=== PATIENT | female | born 1965 | race Caucasian/White ===

== ENCOUNTER → 2016-03-22 | Outpatient (CLI) | payer OTHER ==
[~2016-03-22] MED LIST: CALC500C70 PO; CRAN1CAP15 PO; CYAN500T PO; MULTTAB58 PO; PRLSR20 PO
[2016-03-22 09:52] LABS: ESTIMATED AVERAGE GLUCOSE 140 mg/dl; HA1C FLAG Normal (Normal)
== END | disposition home or self-care (01) ==
LOC: C.LAB1850 07:54
PROVIDERS: ATTEND Family Medicine
DX: R73.03 Prediabetes (principal)

== ENCOUNTER → 2016-06-07 | Outpatient (CLI) | payer OTHER ==
--- NOTE | 2016-06-07 08:54 | DIAGNOSTIC IMAGING REPORT ---
LEFT KNEE 3 VIEWS CLINICAL HISTORY: LEFT KNEE PAIN 719.46, N25.562 pain COMPARISON: None. DISCUSSION: The bones and joint spaces appear intact. There is no evidence of fracture, dislocation or bony disease. There is no evidence for soft tissue swelling. IMPRESSION: Negative study. Electronically signed by: Bart Atkins M.D. 06/07/2016 8:51 AM Dictated Date/Time: 06/07/2016 8:51 AM
== END | disposition home or self-care (01) ==
LOC: C.RAD 08:16
PROVIDERS: ATTEND Physician Assistant
DX: M25.562 Pain in left knee (principal)

== ENCOUNTER → 2016-07-02 | Outpatient (CLI) | payer OTHER ==
--- NOTE | 2016-07-02 16:04 | MAMMOGRAPHY REPORT ---
BILATERAL DIGITAL SCREENING MAMMOGRAM TOMOSYNTHESIS WITH CAD: 07/02/2016 CLINICAL HISTORY: Routine screening. Patient has no complaints. TECHNIQUE: Breast tomosynthesis in addition to standard 2D mammography was performed. Current study was also evaluated with a Computer Aided Detection (CAD) system. COMPARISON: Comparison is made to exams dated: 12/04/2013 mammogram - [facility] an d 03/21/2015 mammogram - [facility]. BREAST COMPOSITION: There are scattered areas of fibroglandular density in both breasts. FINDINGS: There are stable intramammary lymph nodes in the lateral posterior right breast. A few sc attered benign-appearing macro calcifications, and stable focal asymmetry in the upper outer middle one third of the right breast. No new suspicious mass, architectural distortion or cluster of micro calcifications is seen. IMPRESSION: ACR BI-RADS CATEGORY 1: NEGATIVE There is no mammographic evidence of malignancy. A 1 year screening mammogram is recommended. The p atient will receive written notification of the results. Approximately 10% of breast cancers are not detected with mammography. A negative mammographic repor t should not delay biopsy if a clinically suggestive mass is present. Susana Mata M.D. ay/:07/02/2016 13:48:38 Toll Line Repairer: Tracy GRANT(Tatiana)(Suresh), [facility] letter sent: Normal 1/2 BI-RADS Code: ACR BI-RADS Category 1: Negative
== END | disposition home or self-care (01) ==
LOC: C.MAMM 11:31
PROVIDERS: ATTEND Family Medicine
DX: Z12.31 Encounter for screening mammogram for malignant neoplasm of breast (principal)

== ENCOUNTER → 2016-08-14 | Outpatient (CLI) | payer OTHER ==
[2016-08-14 14:38] LABS: RATIO 9.7 mcg/mg (0-30.0)
== END | disposition home or self-care (01) ==
LOC: C.LABMFLN 12:12
PROVIDERS: ATTEND Physician Assistant
DX: E11.9 Type 2 diabetes mellitus without complications (principal); R30.0 Dysuria

== ENCOUNTER → 2016-09-20 | Outpatient (CLI) | payer OTHER ==
[2016-09-20 09:36] LABS: BASO % 0.5 %; BASO ABS # 0.03 K/uL (0-0.2); COMPLETE YES; IG% 0.4 %; LYMPH % 24.6 %; LYMPH ABS # 1.36 K/uL (1.2-3.4); MEAN CELL VOLUME 84.1 fL (80-100); MEAN CORPUSCULAR HEMOGLOBIN 27.8 pg (25-34); MEAN CORPUSCULAR HGB CONC 33.1 g/dl (32-36); MEAN PLATELET VOLUME 10.4 fL (7.4-10.4); MONO % 9.2 %; NEUT % 63.3 %; PLATELET COUNT 283 K/uL (130-400); RED BLOOD COUNT 4.64 M/uL (4.2-5.4); WHITE BLOOD COUNT 5.52 K/uL (4.8-10.8)
[2016-09-20 10:12] LABS: ALT/SGPT 22 U/L (12-78); AST/SGOT 17 U/L (15-37); BLOOD UREA NITROGEN 8 mg/dl (7-18); BUN/CREATININE RATIO 11.3 (10-20); CALCIUM 8.9 mg/dl (8.5-10.1); CARBON DIOXIDE 29 mmol/L (21-32); CHLORIDE 105 mmol/L (98-107); CREATININE 0.68 mg/dl (0.60-1.20); GLUCOSE 113 mg/dl (70-99); POTASSIUM 3.9 mmol/L (3.5-5.1); SODIUM 139 mmol/L (136-145)
[2016-09-20 10:20] LABS: ALB/GLOB RATIO 0.9 (0.9-2); ALKALINE PHOSPHATASE 102 U/L (45-117); CHOLESTEROL 142 mg/dl (0-200); CHOLESTEROL/HDL RATIO 2.4; HDL CHOLESTEROL 58 mg/dl; LDL CHOLESTEROL CALCULATED 68 mg/dl; TOTAL IRON BINDING CAPACITY 381 mcg/dl (250-450); TRIGLYCERIDES 82 mg/dl (0-150); VERY LOW DENSITY LIPOPROT CALC 16 mg/dl
[2016-09-20 11:01] LABS: ESTIMATED AVERAGE GLUCOSE 134 mg/dl; HA1C FLAG Normal (Normal)
== END | disposition home or self-care (01) ==
LOC: C.LAB1850 07:48
PROVIDERS: ATTEND Family Medicine
DX: E56.9 Vitamin deficiency, unspecified (principal); Z98.84 Bariatric surgery status; R73.03 Prediabetes

== ENCOUNTER → 2017-03-10 | Outpatient (CLI) | payer OTHER | END | disposition home or self-care (01) | LOC: C.LABPBG 11:08 | PROVIDERS: ATTEND Physician Assistant | DX: A69.20 Lyme disease, unspecified (principal) ==

== ENCOUNTER → 2017-04-18 | Outpatient (CLI) | payer OTHER ==
[2017-04-18 09:46] LABS: ALBUMIN 3.4 gm/dl (3.4-5.0); ALT/SGPT 22 U/L (12-78); AST/SGOT 18 U/L (15-37); BLOOD UREA NITROGEN 12 mg/dl (7-18); CALCIUM 8.8 mg/dl (8.5-10.1); CARBON DIOXIDE 29 mmol/L (21-32); CREATININE 0.73 mg/dl (0.60-1.20); GLUCOSE 126 mg/dl (70-99); SODIUM 137 mmol/L (136-145)
[2017-04-18 09:49] LABS: ALKALINE PHOSPHATASE 89 U/L (45-117); CHOLESTEROL 164 mg/dl (0-200); LDL CHOLESTEROL CALCULATED 85 mg/dl; TOTAL PROTEIN 7.1 gm/dl (6.4-8.2)
[2017-04-18 09:51] LABS: HEMOGLOBIN A1C 6.5 % (4.5-5.6)
== END | disposition home or self-care (01) ==
LOC: C.LAB1850 07:55
PROVIDERS: ATTEND Family Medicine
DX: E78.5 Hyperlipidemia, unspecified (principal); E11.9 Type 2 diabetes mellitus without complications; Z98.84 Bariatric surgery status

== ENCOUNTER 2022-12-10 03:40 | Observation (INO) ==
[2022-12-10] MEDS ORDERED: ONDANSETRON INJ 2 MG/ML 2 ML VIAL IV STA (04:00)
[2022-12-10] MEDS ORDERED: ACETAMINOPHEN 1,000 MG/100 ML VIAL IV STA (04:00)
[2022-12-10] MEDS ORDERED: SODIUM CHLORIDE 0.9% 1,000 ML IV STA (04:00)
[2022-12-10] MEDS ORDERED: FAMOTIDINE 20MG IV PUSH 20 MG/5 ML SYR IV STA (04:01)
--- NOTE | 2022-12-10 04:19 | Emergency Department Note ---
History of Present Illness General Chief complaint: Abdominal Pain Stated complaint: ABDOMINAL PAIN PAST 5 HOURS,VOMITING Time Seen by Provider: 12/10/22 03:52 History of Present Illness Maximum Pain Intensity: 7 This 57-year-old female that is already had a cholecystectomy and gastric bypass presents to the ER complaining of nausea vomiting and lower abdominal pain. Patient denies chest pain, dyspnea, fevers, diarrhea, urinary symptoms. No other concerns per patient. Patient is on Ozempic. Home Medications Medication Instructions Recorded Confirmed Type acetaminophen 300 mg-codeine 30 mg 1 tab PO DIRECTED PRN Pain 01/04/21 01/04/21 History tablet calcium carbonate 600 mg-vitamin 1 tab PO DAILY 01/04/21 01/04/21 History D3 10 mcg (400 unit) tablet (Calcium 600 + D(3)) escitalopram oxalate 20 mg tablet 20 mg PO DAILY 01/04/21 01/04/21 History famotidine 20 mg tablet 20 mg PO DAILY 01/04/21 01/04/21 History lisinopril 2.5 mg tablet 2.5 mg PO DAILY 01/04/21 01/04/21 History metformin 1,000 mg tablet 1,000 mg PO BID 01/04/21 01/04/21 History multivitamin 1 tab PO DAILY 01/04/21 01/04/21 History Allergies Allergy/AdvReac Type Severity Reaction Status Date / Time No Known Allergies Allergy Verified 01/04/21 01:39 Past Med/Surg History Social History Smoking Status: Never smoker Feels Safe at Home: Yes Review of Systems A total of 10 systems reviewed and were otherwise negative Physical Exam Vital Signs Vital Signs - 24 hr 12/10/22 03:44 12/10/22 06:01 12/10/22 05:56 Temperature 36.4 C L Temperature Source Temporal Artery Scan Pulse Rate 80 70 Pulse Rate [Apical] 66 Pulse Rate from SpO2 Sensor 71 Pulse Rhythm Regular Pulse Rhythm [Apical] Regular Pulse Strength Normal Pulse Strength [Apical] Normal Respiratory Rate 20 16 16 Respiratory Effort / Characteristics Non-Labored Spontaneous Non-Labored Spontaneous Respiratory Depth Normal Normal Respiratory Pattern Regular Blood Pressure 109/75 114/71 Blood Pressure [Left Arm] 122/70 Blood Pressure Mean 86 85 Blood Pressure Mean [Left Arm] 87 Blood Pressure Position Sitting Blood Pressure Position [Left Arm] Lying Pulse Oximetry 99 95 94 Oxygen Delivery Method Room Air Room Air Sepsis Recent Fever Within 48 Hours No Sepsis New/Unexplained Change in Mental Status N/A Sepsis Action Taken by Nursing No Action Required VITALS: Vitals are noted on the nurse's note and reviewed by myself. Vital signs stable. GENERAL: Pleasant patient, in no acute distress, nondiaphoretic, well-developed well-nourished. SKIN: The skin was without rashes, erythema, edema, or bruising. There is no tenting of the skin. Capillary reflex less than 2 seconds. HEAD: Normocephalic atraumatic. EARS: External auditory canals clear, EYES: Pupils equal round and reactive to light and accommodation. Conjunctivae without injection, sclerae without icterus. Extraocular movements intact. NOSE: Patent, turbinates without inflammation or discharge MOUTH: Mucous membranes moist. Pharynx without erythema or exudate. Uvula midline. Airway patent. Tongue does not deviate. NECK: Supple without nuchal rigidity. No lymphadenopathy. No thyromegaly. Cervical spine is nontender. No JVD. HEART: Regular rate and rhythm LUNGS: Clear to auscultation bilaterally without wheezes, rales or rhonchi. No retractions or accessory muscle use. ABDOMEN: Positive bowel sounds x 4. Normal tympanic percussion. Soft, tender to palpation lower abdomen, without masses or organomegaly. Grove sign negative. No guarding or rebound tenderness. No CVA tenderness MUSCULOSKELETAL: No muscle atrophy, erythema, or edema noted. NEURO: Patient was alert and oriented to person place and time. Normal sensation to light and sharp touch. No focal neurological deficits. Course Administered Medications Discontinued Medications Sodium Chloride (Nss) 1,000 mls @ 999 mls/hr IV .Q1H1M STA Stop: 12/10/22 05:00 Last Infusion: 12/10/22 05:14 Dose: 0 mls/hr Documented By: Admin: 12/10/22 04:07 Dose: 999 mls/hr Documented By: TATUM Acetaminophen (Ofirmev) 1,000 mg in 100 mls @ 400 mls/hr IV NOW STA Stop: 12/10/22 04:14 Last Infusion: 12/10/22 04:33 Dose: 0 mls/hr Documented By: Admin: 12/10/22 04:07 Dose: 400 mls/hr Documented By: TATUM Famotidine (Pepcid 20mg Iv Push) 20 mg in 5 mls @ 2.5 mls/min IV NOW STA Stop: 12/10/22 04:02 Last Admin: 12/10/22 04:07 Dose: 2.5 mls/min Documented By: TATUM Ioversol (Optiray 320 100ml) 100 ml IV ONCE ONE Stop: 12/10/22 05:00 Last Admin: 12/10/22 04:59 Dose: 90 ml Documented By: GURPREET Ondansetron HCl (Ondansetron Inj 2 Mg/Ml 2 Ml Vial) 4 mg IV NOW STA Stop: 12/10/22 04:01 Last Admin: 12/10/22 04:07 Dose: 4 mg Documented By: TATUM Medical Decision Making Medical Records Attestation: I reviewed the patient's medical records. Home Medications Current Medication List: was personally reviewed by me Laboratory Data Attestation: I reviewed the patient's lab results. 12/10/22 04:16 12/10/22 04:16 Lab Results 12/10/22 12/10/22 12/10/22 Range/Units 04:16 04:16 04:16 WBC 9.19 (4.8-10.8) K/ul RBC 4.77 (4.20-5.40) M/uL Hgb 14.0 (12.0-16.0) g/dl POC Hgb (12.0-16.0) g/dl Hct 41.0 (37.0-47.0) % POC Hct (37-47) % MCV 86.0 (80.0-100.0) fL MCH 29.4 (25.0-34.0) pg MCHC 34.1 (32.0-36.0) g/dL RDW Std Deviation 39.8 (36.4-46.3) fL RDW Coeff of Luca 12.6 (11.5-14.5) % Plt Count 293 (130-400) K/uL MPV 10.0 (9.4-12.4) fL Immature Gran % (Auto) 0.3 % Neut % (Auto) 82.0 % Lymph % (Auto) 11.2 % Alger % (Auto) 5.8 % Eos % (Auto) 0.3 % Baso % (Auto) 0.4 % Neut # (Auto) 7.53 H (1.40-6.50) K/uL Lymph # (Auto) 1.03 L (1.20-3.40) K/uL Alger # (Auto) 0.53 (0.11-0.59) K/uL Eos # (Auto) 0.03 (0.00-0.50) K/uL Baso # (Auto) 0.04 (0.00-0.20) K/uL Immature Gran # (Auto) 0.03 (0.01-0.20) K/uL POC Sodium (135-144) mmol/L Sodium 136 (136-145) mmol/L POC Potassium (3.3-5.0) mmol/L Potassium 4.1 (3.5-5.1) mmol/L POC Chloride (101-112) mmol/L Chloride 104 (98-107) mmol/L Carbon Dioxide 26 (21-32) mmol/L POC Total CO2 (24-31) mmol/L Anion Gap 6 (3-11) POC Anion Gap (16-25) mmol/L POC BUN (7-18) mg/dl BUN 10 (6-23) mg/dl Creatinine 0.73 (0.6-1.2) mg/dl POC Creatinine (0.6-1.3) mg/dl Est Cr Clr Drug Dosing 96.7 ml/min Est GFR ( Amer) 106.7 ml/min Est GFR (Non-Af Amer) 92.1 ml/min BUN/Creatinine Ratio 13.7 (10-20) Glucose 179 H (70-99(Fasting)) mg/dl POC Glucose (other) (70-99) mg/dl Calcium 9.3 (8.6-10.3) mg/dl POC Ioniz Calcium Yeyo (1.12-1.32) mmol/l Total Bilirubin 0.6 (0.2-1.0) mg/dl AST 21 (13-39) U/L ALT 18 (7-52) U/L Alkaline Phosphatase 117 H (34-104) U/L Total Protein 7.1 (6.0-8.3) gm/dl Albumin 4.1 (3.4-5.0) gm/dl Globulin 3.0 (2.5-4.0) gm/dl Albumin/Globulin Ratio 1.4 (0.9-2) Lipase 31 (11-82) U/L Urine Color Dark Yellow Urine Appearance Clear (Clear) Urine pH 5.5 (4.5-7.5) Ur Specific Haiku 1.036 H (1.000-1.030) Urine Protein Trace H (Negative) Urine Glucose (UA) Negative (Negative) Urine Ketones Trace H (Negative) Urine Blood Negative (Negative) Urine Nitrite Negative (Negative) Urine Bilirubin 1+ H (Negative) Urine Urobilinogen Negative (Negative) Ur Leukocyte Esterase Trace H (Negative) Urine WBC (Auto) 1-5 (0-5) /hpf Urine RBC (Auto) 0-4 (0-4) /hpf U Hyaline Cast (Auto) 1-5 (0-5) /lpf U Epithel Cells (Auto) 10-20 H (0-5) /lpf Urine Bacteria (Auto) Negative (Negative) 12/10/22 Range/Units 04:25 WBC (4.8-10.8) K/ul RBC (4.20-5.40) M/uL Hgb (12.0-16.0) g/dl POC Hgb 13.9 (12.0-16.0) g/dl Hct (37.0-47.0) % POC Hct 41 (37-47) % MCV (80.0-100.0) fL MCH (25.0-34.0) pg MCHC (32.0-36.0) g/dL RDW Std Deviation (36.4-46.3) fL RDW Coeff of Luca (11.5-14.5) % Plt Count (130-400) K/uL MPV (9.4-12.4) fL Immature Gran % (Auto) % Neut % (Auto) % Lymph % (Auto) % Alger % (Auto) % Eos % (Auto) % Baso % (Auto) % Neut # (Auto) (1.40-6.50) K/uL Lymph # (Auto) (1.20-3.40) K/uL Alger # (Auto) (0.11-0.59) K/uL Eos # (Auto) (0.00-0.50) K/uL Baso # (Auto) (0.00-0.20) K/uL Immature Gran # (Auto) (0.01-0.20) K/uL POC Sodium 138 (135-144) mmol/L Sodium (136-145) mmol/L POC Potassium 4.1 (3.3-5.0) mmol/L Potassium (3.5-5.1) mmol/L POC Chloride 101 (101-112) mmol/L Chloride (98-107) mmol/L Carbon Dioxide (21-32) mmol/L POC Total CO2 24 (24-31) mmol/L Anion Gap (3-11) POC Anion Gap 18.0 (16-25) mmol/L POC BUN 9 (7-18) mg/dl BUN (6-23) mg/dl Creatinine (0.6-1.2) mg/dl POC Creatinine 0.7 (0.6-1.3) mg/dl Est Cr Clr Drug Dosing ml/min Est GFR ( Amer) ml/min Est GFR (Non-Af Amer) ml/min BUN/Creatinine Ratio (10-20) Glucose (70-99(Fasting)) mg/dl POC Glucose (other) 177 H (70-99) mg/dl Calcium (8.6-10.3) mg/dl POC Ioniz Calcium Yeyo 1.17 (1.12-1.32) mmol/l Total Bilirubin (0.2-1.0) mg/dl AST (13-39) U/L ALT (7-52) U/L Alkaline Phosphatase (34-104) U/L Total Protein (6.0-8.3) gm/dl Albumin (3.4-5.0) gm/dl Globulin (2.5-4.0) gm/dl Albumin/Globulin Ratio (0.9-2) Lipase (11-82) U/L Urine Color Urine Appearance (Clear) Urine pH (4.5-7.5) Ur Specific Haiku (1.000-1.030) Urine Protein (Negative) Urine Glucose (UA) (Negative) Urine Ketones (Negative) Urine Blood (Negative) Urine Nitrite (Negative) Urine Bilirubin (Negative) Urine Urobilinogen (Negative) Ur Leukocyte Esterase (Negative) Urine WBC (Auto) (0-5) /hpf Urine RBC (Auto) (0-4) /hpf U Hyaline Cast (Auto) (0-5) /lpf U Epithel Cells (Auto) (0-5) /lpf Urine Bacteria (Auto) (Negative) Imaging Data Attestation: I personally reviewed and interpreted this imaging study as follows: Radiologist's Impression: Abdomen/Pelvis CT 12/10/22 04:00 CR Exam(s): CT ABDOMEN + PELVIS With Contrast IV Amt: 90 ML OPTIRAY 320 EXAM: CT Abdomen and Pelvis With Intravenous Contrast CLINICAL HISTORY: Reason for exam: rlq pain. TECHNIQUE: Axial computed tomography images of the abdomen and pelvis with intravenous contrast. Automated exposure control was utilized for the study. A dose lowering technique was utilized adhering to the principles of ALARA. CONTRAST: Patient received 90 ML OPTIRAY 320 of IV contrast COMPARISON: CT abdomen pelvis performed 04/16/2011 FINDINGS: Lung bases: Unremarkable. No mass. No consolidation. ABDOMEN: Liver: Unremarkable. No mass. Gallbladder and bile ducts: Cholecystectomy. No ductal dilation. Pancreas: Unremarkable. No mass. No ductal dilation. Spleen: Unremarkable. No splenomegaly. Adrenals: Unremarkable. No mass. Kidneys and ureters: Unremarkable. No solid mass. No hydronephrosis. Stomach and bowel: Sequela from prior bariatric surgery without evidence of obstruction. Approximately 3.8 cm hiatal hernia. PELVIS: Appendix: Appendix distended up to 1.1 cm with wall thickening and inflammatory change consistent with acute appendicitis. No adjacent fluid collection. Bladder: Unremarkable. No mass. Reproductive: Unremarkable as visualized. ABDOMEN and PELVIS: Intraperitoneal space: No free air. No significant fluid collection. Bones/joints: No acute fracture. No dislocation. Soft tissues: Unremarkable. Vasculature: Unremarkable. No abdominal aortic aneurysm. Lymph nodes: No enlarged lymph nodes. IMPRESSION: Findings consistent with acute nonperforated appendicitis. No adjacent fluid collection. Communications: Call Doctor Appendicitis Electronically signed by: Delano Laughlin M.D. 12/10/22 06:15 AM MDM Narrative Prior records/ancillary studies reviewed. Triage Nursing notes reviewed. Additional history obtained from family. The patient's history was concerning for abdominal pain. Differential diagnosis: Etiologies such as appendicitis, diverticulitis, PUD, biliary pathology, UTI, pancreatitis, obstruction, mesenteric ischemia, aortic pathology, infections, inflammatory bowel disease, renal colic, as well as others were entertained. Physical examination findings: As above. ER treatment provided: An order was placed for continuous cardiac monitoring. The monitor shows a rate of 60-100 with a sinus rhythm per my Independent interpretation. IV fluids, Zofran, Tylenol and Pepcid were ordered Zosyn was ordered for acute appendicitis N.p.o. On reassessment the patient felt better. Diagnostics interpreted by me: The labs Independently Interpreted by myself revealed no worrisome leukocytosis, mild hyperglycemia that DKA, negative urine Imaging studies: CT of the abdomen pelvis is concerning for acute appendicitis per my independent interpretation and per report as above Consultation: A consultation was placed with the Dr. Meyer. The case was discussed and diagnostics were reviewed. Surgery will come in and evaluate the patient. Exam and history seem consistent with acute appendicitis. Surgery was consulted and the case was discussed. Patient was started on antibiotics. Medicine was consulted and the case was discussed. She will be evaluated the surgical team for further evaluation and treatment. By the evaluation outlined above emergent etiologies such as diverticulitis, PUD, biliary pathology, UTI, pancreatitis, obstruction, mesenteric ischemia, aortic pathology, inflammatory bowel disease, renal colic, as well as others were deemed relatively unlikely. The pt informed about the findings as listed above. All questions were answered and pleased with the treatment. The chart was completed utilizing [employer] Speech voice recognition software. Grammatical errors, random word insertions, pronoun errors, and incomplete sentences are an occassional consequence of this system due to software limitations, ambient noise, and hardware issues. Any formal questions or concerns about the content, text, or information contained within the body of this dictation should be directly addressed to the physician assistant professor of religion for clarification. Impression & Plan Acute appendicitis Discharge Plan Visit Data Chief Complaint: Abdominal Pain Stated Complaint: ABDOMINAL PAIN PAST 5 HOURS,VOMITING ED Provider: Katiuska Trent ED Midlevel Provider: Cheryl Zelaya Discharge Problem: Acute appendicitis Patient Disposition: Being Evaluated by Surgeon Condition: Good Discharge Instructions Activity Restrictions/Additional Instructions: Forms Stand Alone Forms: Work/School Release (ED), Virtual Emergency Department, Important Visit Information Prescriptions Prescriptions: No Action multivitamin Tablet 1 tab PO DAILY acetaminophen-codeine 300-30 mg tablet 1 tab PO DIRECTED PRN (Reason: Pain) famotidine 20 mg tablet 20 mg PO DAILY metformin 1,000 mg tablet 1,000 mg PO BID lisinopril 2.5 mg tablet 2.5 mg PO DAILY escitalopram oxalate 20 mg tablet 20 mg PO DAILY calcium carbonate-vitamin D3 [Calcium 600 + D(3)] 600 mg(1,500mg) -400 unit Tablet 1 tab PO DAILY Referrals Referrals: Jeet Stevenson, [Primary Care Provider] -
[2022-12-10 04:28] LABS: Appearance Urine Clear (Clear); Bacteria Urine Automated Negative (Negative); Blood Urine Negative (Negative); Color Urine Dark Yellow; Glucose Urine UA Negative (Negative); Ketones Urine Trace (Negative); Leukocyte Esterase Urine Trace (Negative); Nitrite Urine Negative (Negative); Protein Urine Trace (Negative); RBC Urine Automated 0-4 /hpf (0-4); Specific Gravity Urine 1.036 (1.000-1.030); Urobilinogen Urine Negative (Negative); pH Urine 5.5 (4.5-7.5)
[2022-12-10 04:29] LABS: Bilirubin Urine 1+ (Negative)
[2022-12-10 04:32] LABS: Basophils # (auto) 0.04 K/uL (0.00-0.20); Basophils % (auto) 0.4 %; Eosinophils # (auto) 0.03 K/uL (0.00-0.50); Eosinophils % (auto) 0.3 %; Immature Granulocytes # (auto) 0.03 K/uL (0.01-0.20); Immature Granulocytes % (auto) 0.3 %; Lymphocytes # (auto) 1.03 K/uL (1.20-3.40); Lymphocytes % (auto) 11.2 %; Mean Corpuscular Hemoglobin 29.4 pg (25.0-34.0); Mean Corpuscular Hgb Conc 34.1 g/dL (32.0-36.0); Monocytes # (auto) 0.53 K/uL (0.11-0.59); Monocytes % (auto) 5.8 %; Neutrophils # (auto) 7.53 K/uL (1.40-6.50); Platelet Count 293 K/uL (130-400); RDW Coefficient of Variation 12.6 % (11.5-14.5); RDW Standard Deviation 39.8 fL (36.4-46.3); Red Blood Count 4.77 M/uL (4.20-5.40); White Blood Count 9.19 K/ul (4.8-10.8)
[2022-12-10 04:42] LABS: iSTAT Creatinine 0.7 mg/dl (0.6-1.3); iSTAT Hemoglobin 13.9 g/dl (12.0-16.0); iSTAT Ionized Calcium 1.17 mmol/l (1.12-1.32); iSTAT Potassium 4.1 mmol/L (3.3-5.0)
[2022-12-10 04:47] LABS: Albumin Globulin Ratio 1.4 (0.9-2); Albumin Level 4.1 gm/dl (3.4-5.0); BUN Creatinine Ratio 13.7 (10-20); Bilirubin,Total 0.6 mg/dl (0.2-1.0); Calcium 9.3 mg/dl (8.6-10.3); Creatinine Clr Calc Pharmacy 96.7 ml/min; Est GFR (African American) 106.7 ml/min; Est GFR (Non-African American) 92.1 ml/min; Potassium 4.1 mmol/L (3.5-5.1); Total Protein 7.1 gm/dl (6.0-8.3)
[2022-12-10] MEDS ORDERED: OPTIRAY 320 100ml IV ONE (04:59)
[2022-12-10] MEDS ORDERED: ONDANSETRON HOME PACK 4MG OD TAB PO ONE (05:44)
--- NOTE | 2022-12-10 06:16 | CT Scan Report ---
Exam(s): CT ABDOMEN + PELVIS With Contrast IV Amt: 90 ML OPTIRAY 320 EXAM: CT Abdomen and Pelvis With Intravenous Contrast CLINICAL HISTORY: Reason for exam: rlq pain. TECHNIQUE: Axial computed tomography images of the abdomen and pelvis with intravenous contrast. Automated exposure control was utilized for the study. A dose lowering technique was utilized adhering to the principles of ALARA. CONTRAST: Patient received 90 ML OPTIRAY 320 of IV contrast COMPARISON: CT abdomen pelvis performed 04/16/2011 FINDINGS: Lung bases: Unremarkable. No mass. No consolidation. ABDOMEN: Liver: Unremarkable. No mass. Gallbladder and bile ducts: Cholecystectomy. No ductal dilation. Pancreas: Unremarkable. No mass. No ductal dilation. Spleen: Unremarkable. No splenomegaly. Adrenals: Unremarkable. No mass. Kidneys and ureters: Unremarkable. No solid mass. No hydronephrosis. Stomach and bowel: Sequela from prior bariatric surgery without evidence of obstruction. Approximately 3.8 cm hiatal hernia. PELVIS: Appendix: Appendix distended up to 1.1 cm with wall thickening and inflammatory change consistent with acute appendicitis. No adjacent fluid collection. Bladder: Unremarkable. No mass. Reproductive: Unremarkable as visualized. ABDOMEN and PELVIS: Intraperitoneal space: No free air. No significant fluid collection. Bones/joints: No acute fracture. No dislocation. Soft tissues: Unremarkable. Vasculature: Unremarkable. No abdominal aortic aneurysm. Lymph nodes: No enlarged lymph nodes. IMPRESSION: Findings consistent with acute nonperforated appendicitis. No adjacent fluid collection. Communications: Call Doctor Appendicitis Electronically signed by: Delano Laughlin M.D. 12/10/22 06:15 AM
[2022-12-10] MEDS ORDERED: PIPERACILLIN/TAZOBACTAM 4.5 GM/100 ML BAG IV ONE (06:17)
[2022-12-10] MEDS ORDERED: MoRPHine SULFATE 4 MG/ML 1 ML CARP\\VIAL IV STA (07:52)
--- NOTE | 2022-12-10 09:11 | History & Physical Report ---
Date of Service December 10, 2022 Assessment & Plan (1) Acute appendicitis: Plan 57 year-old female with 12 hour history of lower abdominal pain with associated nausea and vomiting. CT scan with dilated appendix at 1.1 cm with no evidence of abscess or perforation. No leukocytosis, afebrile, hemodynamically stable. Exam with tenderness in the right lower quadrant. Plan: Discussed with patient imaging findings and examination findings consistent with acute appendicitis. Discussed laparoscopic appendectomy , risks, and expected recovery and restrictions. Will plan to proceed to operating room today for laparoscopic appendectomy at earliest convenience. Keep npo pain management as needed Dr. Guerra has seen and examined patient, see addendum for further recommendations/plan. History of Present Illness Chief Complaint: abdominal pain Primary Care Provider: Jeet Stevenson DO Dasia is a 57 year-old female with history of diabetes, hypertension, GERD with history of laparoscopic gastric bypass and laparoscopic cholecystectomy who presented to emergency room with complaint of mid lower abdominal pain that started last evening around 8 pm with chills, nausea, and vomiting, and low appetite. No changes in bowel habits. No difficulty urinating. Pain was burning at first but then became more sharp. Antacid did not improve pain. No history of blood clots or bleeding disorders. ER work-up included labs which showed no leukocytosis. CT scan of abdomen and pelvis with dilated appendix measuring 1.1 cm with no evidence of abscess/perforation. Pain was rating at 7/10 upon ER presentation and now 4/10 after pain medication. Allergies Allergy/AdvReac Type Severity Reaction Status Date / Time codeine AdvReac Mild makes her Unverified 12/10/22 08:13 sick to stomach Home Medications Medication Instructions Recorded Confirmed Type calcium carbonate 600 mg-vitamin 1 tab PO DAILY 01/04/21 12/10/22 History D3 10 mcg (400 unit) tablet (Calcium 600 + D(3)) escitalopram oxalate 20 mg tablet 10 mg PO DAILY 01/04/21 12/10/22 History famotidine 20 mg tablet 20 mg PO DAILY 01/04/21 12/10/22 History lisinopril 2.5 mg tablet 2.5 mg PO DAILY 01/04/21 12/10/22 History metformin 1,000 mg tablet 1,000 mg PO BID 01/04/21 12/10/22 History multivitamin 1 tab PO DAILY 01/04/21 12/10/22 History atorvastatin 10 mg tablet 10 mg PO DAILY 12/10/22 12/10/22 History pantoprazole 40 mg tablet,delayed 40 mg PO DAILY 12/10/22 12/10/22 History release semaglutide 1 mg/dose (4 mg/3 mL) 1 mg subcut WK 12/10/22 12/10/22 History subcutaneous pen injector (Ozempic) Past Med/Surg History Social History Smoking Status: Never smoker Feels Safe at Home: Yes Review of Systems Review of Systems: All systems reviewed & are unremarkable except as noted in HPI & below Physical Exam Constitutional: WD/WN, vitals as above + obese, cooperative and comfortable; no acute distress and not ill appearing Respiratory: normal respiratory effort, lungs clear to auscultation Cardiovascular: RRR, no murmur, no edema Gastrointestinal (Abdomen): Inspection/Auscultation: abdomen normal to inspe ction and + abdominal surgical scar (laparoscopic scars present); abdomen not distended Percussion/Palpation: + abdomen tender (Right lower quadrant) and abdomen soft; no guarding, abdomen not rigid and abdomen not firm Positve Rosvigs sign Skin: no rashes, warm and dry Psychiatric: A+Ox3, euthymic affect Results & Data Results & Data Vital Signs (Past 12 Hours) Vital Signs Temp Pulse Pulse Resp BP BP Pulse Ox 12/10/22 08:47 70 12/10/22 06:30 78 15 115/71 97 12/10/22 06:00 122/70 12/10/22 04:16 67 12/10/22 05:56 70 16 114/71 94 12/10/22 06:01 66 16 122/70 95 12/10/22 03:44 36.4 C L 80 20 109/75 99 O2 Del Method 12/10/22 08:47 12/10/22 06:30 12/10/22 06:00 12/10/22 04:16 12/10/22 05:56 12/10/22 06:01 Room Air 12/10/22 03:44 Room Air Laboratory Results 12/10/22 12/10/22 12/10/22 Range/Units 04:25 04:16 04:16 WBC (4.8-10.8) K/ul RBC (4.20-5.40) M/uL Hgb (12.0-16.0) g/dl POC Hgb 13.9 (12.0-16.0) g/dl Hct (37.0-47.0) % POC Hct 41 (37-47) % MCV (80.0-100.0) fL MCH (25.0-34.0) pg MCHC (32.0-36.0) g/dL RDW Std Deviation (36.4-46.3) fL RDW Coeff of Luca (11.5-14.5) % Plt Count (130-400) K/uL MPV (9.4-12.4) fL Immature Gran % (Auto) % Neut % (Auto) % Lymph % (Auto) % Swain % (Auto) % Eos % (Auto) % Baso % (Auto) % Neut # (Auto) (1.40-6.50) K/uL Lymph # (Auto) (1.20-3.40) K/uL Swain # (Auto) (0.11-0.59) K/uL Eos # (Auto) (0.00-0.50) K/uL Baso # (Auto) (0.00-0.20) K/uL Immature Gran # (Auto) (0.01-0.20) K/uL POC Sodium 138 (135-144) mmol/L Sodium 136 (136-145) mmol/L POC Potassium 4.1 (3.3-5.0) mmol/L Potassium 4.1 (3.5-5.1) mmol/L POC Chloride 101 (101-112) mmol/L Chloride 104 (98-107) mmol/L Carbon Dioxide 26 (21-32) mmol/L POC Total CO2 24 (24-31) mmol/L Anion Gap 6 (3-11) POC Anion Gap 18.0 (16-25) mmol/L POC BUN 9 (7-18) mg/dl BUN 10 (6-23) mg/dl Creatinine 0.73 (0.6-1.2) mg/dl POC Creatinine 0.7 (0.6-1.3) mg/dl Est Cr Clr Drug Dosing 96.7 ml/min Est GFR ( Amer) 106.7 ml/min Est GFR (Non-Af Amer) 92.1 ml/min BUN/Creatinine Ratio 13.7 (10-20) Glucose 179 H (70-99(Fasting)) mg/dl POC Glucose (other) 177 H (70-99) mg/dl Calcium 9.3 (8.6-10.3) mg/dl POC Ioniz Calcium Yeyo 1.17 (1.12-1.32) mmol/l Total Bilirubin 0.6 (0.2-1.0) mg/dl AST 21 (13-39) U/L ALT 18 (7-52) U/L Alkaline Phosphatase 117 H (34-104) U/L Total Protein 7.1 (6.0-8.3) gm/dl Albumin 4.1 (3.4-5.0) gm/dl Globulin 3.0 (2.5-4.0) gm/dl Albumin/Globulin Ratio 1.4 (0.9-2) Lipase 31 (11-82) U/L Urine Color Dark Yellow Urine Appearance Clear (Clear) Urine pH 5.5 (4.5-7.5) Ur Specific [place] 1.036 H (1.000-1.030) Urine Protein Trace H (Negative) Urine Glucose (UA) Negative (Negative) Urine Ketones Trace H (Negative) Urine Blood Negative (Negative) Urine Nitrite Negative (Negative) Urine Bilirubin 1+ H (Negative) Urine Urobilinogen Negative (Negative) Ur Leukocyte Esterase Trace H (Negative) Urine WBC (Auto) 1-5 (0-5) /hpf Urine RBC (Auto) 0-4 (0-4) /hpf U Hyaline Cast (Auto) 1-5 (0-5) /lpf U Epithel Cells (Auto) 10-20 H (0-5) /lpf Urine Bacteria (Auto) Negative (Negative) 12/10/22 Range/Units 04:16 WBC 9.19 (4.8-10.8) K/ul RBC 4.77 (4.20-5.40) M/uL Hgb 14.0 (12.0-16.0) g/dl POC Hgb (12.0-16.0) g/dl Hct 41.0 (37.0-47.0) % POC Hct (37-47) % MCV 86.0 (80.0-100.0) fL MCH 29.4 (25.0-34.0) pg MCHC 34.1 (32.0-36.0) g/dL RDW Std Deviation 39.8 (36.4-46.3) fL RDW Coeff of Luca 12.6 (11.5-14.5) % Plt Count 293 (130-400) K/uL MPV 10.0 (9.4-12.4) fL Immature Gran % (Auto) 0.3 % Neut % (Auto) 82.0 % Lymph % (Auto) 11.2 % Swain % (Auto) 5.8 % Eos % (Auto) 0.3 % Baso % (Auto) 0.4 % Neut # (Auto) 7.53 H (1.40-6.50) K/uL Lymph # (Auto) 1.03 L (1.20-3.40) K/uL Swain # (Auto) 0.53 (0.11-0.59) K/uL Eos # (Auto) 0.03 (0.00-0.50) K/uL Baso # (Auto) 0.04 (0.00-0.20) K/uL Immature Gran # (Auto) 0.03 (0.01-0.20) K/uL POC Sodium (135-144) mmol/L Sodium (136-145) mmol/L POC Potassium (3.3-5.0) mmol/L Potassium (3.5-5.1) mmol/L POC Chloride (101-112) mmol/L Chloride (98-107) mmol/L Carbon Dioxide (21-32) mmol/L POC Total CO2 (24-31) mmol/L Anion Gap (3-11) POC Anion Gap (16-25) mmol/L POC BUN (7-18) mg/dl BUN (6-23) mg/dl Creatinine (0.6-1.2) mg/dl POC Creatinine (0.6-1.3) mg/dl Est Cr Clr Drug Dosing ml/min Est GFR ( Amer) ml/min Est GFR (Non-Af Amer) ml/min BUN/Creatinine Ratio (10-20) Glucose (70-99(Fasting)) mg/dl POC Glucose (other) (70-99) mg/dl Calcium (8.6-10.3) mg/dl POC Ioniz Calcium Yeyo (1.12-1.32) mmol/l Total Bilirubin (0.2-1.0) mg/dl AST (13-39) U/L ALT (7-52) U/L Alkaline Phosphatase (34-104) U/L Total Protein (6.0-8.3) gm/dl Albumin (3.4-5.0) gm/dl Globulin (2.5-4.0) gm/dl Albumin/Globulin Ratio (0.9-2) Lipase (11-82) U/L Urine Color Urine Appearance (Clear) Urine pH (4.5-7.5) Ur Specific [place] (1.000-1.030) Urine Protein (Negative) Urine Glucose (UA) (Negative) Urine Ketones (Negative) Urine Blood (Negative) Urine Nitrite (Negative) Urine Bilirubin (Negative) Urine Urobilinogen (Negative) Ur Leukocyte Esterase (Negative) Urine WBC (Auto) (0-5) /hpf Urine RBC (Auto) (0-4) /hpf U Hyaline Cast (Auto) (0-5) /lpf U Epithel Cells (Auto) (0-5) /lpf Urine Bacteria (Auto) (Negative) Diagnostic Findings Exam(s): CT ABDOMEN + PELVIS With Contrast IV Amt: 90 ML OPTIRAY 320 EXAM: CT Abdomen and Pelvis With Intravenous Contrast CLINICAL HISTORY: Reason for exam: rlq pain. TECHNIQUE: Axial computed tomography images of the abdomen and pelvis with intravenous contrast. Automated exposure control was utilized for the study. A dose lowering technique was utilized adhering to the principles of ALARA. CONTRAST: Patient received 90 ML OPTIRAY 320 of IV contrast COMPARISON: CT abdomen pelvis performed 04/16/2011 FINDINGS: Lung bases: Unremarkable. No mass. No consolidation. ABDOMEN: Liver: Unremarkable. No mass. Gallbladder and bile ducts: Cholecystectomy. No ductal dilation. Pancreas: Unremarkable. No mass. No ductal dilation. Spleen: Unremarkable. No splenomegaly. Adrenals: Unremarkable. No mass. Kidneys and ureters: Unremarkable. No solid mass. No hydronephrosis. Stomach and bowel: Sequela from prior bariatric surgery without evidence of obstruction. Approximately 3.8 cm hiatal hernia. PELVIS: Appendix: Appendix distended up to 1.1 cm with wall thickening and inflammatory change consistent with acute appendicitis. No adjacent fluid collection. Bladder: Unremarkable. No mass. Reproductive: Unremarkable as visualized. ABDOMEN and PELVIS: Intraperitoneal space: No free air. No significant fluid collection. Bones/joints: No acute fracture. No dislocation. Soft tissues: Unremarkable. Vasculature: Unremarkable. No abdominal aortic aneurysm. Lymph nodes: No enlarged lymph nodes. IMPRESSION: Findings consistent with acute nonperforated appendicitis. No adjacent fluid collection. Code Status & VTE Plan VTE Prophylaxis Plan VTE Prophylaxis will be ordered: Yes Supervising Physician Co-Signing Physician Notes I have seen and examined the patient and agree with the above assessment and plan. In brief, her pain started last night. It has been worsening. CT scan demonstrates acute appendicitis. On physical exam, she has point tenderness in the right lower quadrant and McBurney's point. She has a positive Rovsing sign. I discussed with her the risks and benefits of a laparoscopic appendectomy, possible open. All her questions were answered, she is agreeable to proceed. We will take her to the operating room at the earliest convenience.
[2022-12-10] MEDS ORDERED: ONDANSETRON INJ 2 MG/ML 2 ML VIAL IV PRN ×2 (09:29→14:11)
[2022-12-10] MEDS ORDERED: MoRPHine SULFATE 2 MG/ML CARP IV PRN (09:29)
[2022-12-10] MEDS ORDERED: MoRPHine SULFATE 4 MG/ML 1 ML CARP\\VIAL IV PRN (09:29)
[2022-12-10] MEDS: LACTATED RINGER'S 1,000 ML IV SCH ×3 (10:47→23:29)
[2022-12-10] MEDS ORDERED: LACTATED RINGER'S 1,000 ML IV SCH (13:30)
[2022-12-10] MEDS ORDERED: fentaNYL citrate PF 100 MCG/2 ML VIAL ONE ×2 (13:56→15:19)
[2022-12-10] MEDS ORDERED: MIDAZOLAM HCL 1 MG/ML 2ML VIAL ONE (13:56)
[2022-12-10] MEDS ORDERED: ePHEDrine sulfate 50 MG/ML AMP IV PRN (14:11)
[2022-12-10] MEDS ORDERED: fentaNYL citrate PF 100 MCG/2 ML VIAL IV PRN (14:11)
[2022-12-10] MEDS ORDERED: ATROPINE SULFATE 0.1 MG/ML 10ML SYR IV PRN (14:11)
--- NOTE | 2022-12-10 14:11 | Anesthesiology Consultation ---
Date of Service December 10, 2022 Assessment & Plan (1) Encounter for pre-operative examination: Chart Review Chart Review: Acceptable Risk for Surgery and Patient NOT seen in Pre Admission Testing Consults Requested none History Surgery Operation Date: 12/10/22 12:35 Proposed Procedures p Laparoscopic Appendectomy - Brayan Guerra MD Height/Weight Height: 5 ft 4 in Weight: 96 kg Allergies Allergy/AdvReac Type Severity Reaction Status Date / Time codeine AdvReac Mild makes her Verified 12/10/22 13:14 sick to stomach Medications Home Medications Medication Instructions Recorded Confirmed Last Taken calcium carbonate 600 mg-vitamin 1 tab PO DAILY 01/04/21 12/10/22 01/03/21 D3 10 mcg (400 unit) tablet (Calcium 600 + D(3)) escitalopram oxalate 20 mg tablet 10 mg PO DAILY 01/04/21 12/10/22 01/03/21 famotidine 20 mg tablet 20 mg PO DAILY 01/04/21 12/10/22 01/03/21 lisinopril 2.5 mg tablet 2.5 mg PO DAILY 01/04/21 12/10/22 01/03/21 metformin 1,000 mg tablet 1,000 mg PO BID 01/04/21 12/10/22 01/03/21 multivitamin 1 tab PO DAILY 01/04/21 12/10/22 01/03/21 atorvastatin 10 mg tablet 10 mg PO DAILY 12/10/22 12/10/22 Unknown pantoprazole 40 mg tablet,delayed 40 mg PO DAILY 12/10/22 12/10/22 Unknown release semaglutide 1 mg/dose (4 mg/3 mL) 1 mg subcut WK 12/10/22 12/10/22 Unknown subcutaneous pen injector (Ozempic) Active Medications Generic Name Dose Route Start Last Admin Trade Name Freq PRN Reason Stop Dose Admin Lactated Ringer's 1,000 mls @ 125 mls/hr 12/10/22 09:45 12/10/22 13:25 Lr IV 01/09/23 09:44 0 mls/hr .Q8H ALENA Infusion Lactated Ringer's 1,000 mls @ 15 mls/hr 12/10/22 13:30 12/10/22 13:26 Lr IV 01/09/23 13:29 15 mls/hr .Q24H ALENA Administration NPO Date Last Intake of Fluids: 12/09/22 Time Last Intake of Fluids: 22:45 Date Last Intake of Solids: 12/09/22 Time Last Intake of Solids: 22:45 Past Medical History Medical History Diabetes mellitus GERD (gastroesophageal reflux disease) Hyperlipidemia Hypertension Sleep apnea Past Surgical History Surgical History History of bariatric surgery History of laparoscopic cholecystectomy Social History Smoking Status: Never smoker Physical Exam Vital Signs Last Vital Signs Temp 98.6 F 12/10/22 13:07 Pulse 71 12/10/22 13:07 Resp 18 12/10/22 13:07 BP 103/69 12/10/22 13:07 Pulse Ox 95 12/10/22 13:07 O2 Del Method Room Air 12/10/22 13:07 Testing Laboratory Results 12/10/22 04:16 12/10/22 04:16 Urine Color Dark Yellow 12/10/22 04:16 Urine Appearance Clear (Clear) 12/10/22 04:16 Urine pH 5.5 (4.5-7.5) 12/10/22 04:16 Ur Specific [place] 1.036 (1.000-1.030) H 12/10/22 04:16 Urine Protein Trace (Negative) H 12/10/22 04:16 Urine Glucose (UA) Negative (Negative) 12/10/22 04:16 Urine Ketones Trace (Negative) H 12/10/22 04:16 Urine Nitrite Negative (Negative) 12/10/22 04:16 Ur Leukocyte Esterase Trace (Negative) H 12/10/22 04:16 Urine WBC (Auto) 1-5 /hpf (0-5) 12/10/22 04:16 Urine RBC (Auto) 0-4 /hpf (0-4) 12/10/22 04:16 U Hyaline Cast (Auto) 1-5 /lpf (0-5) 12/10/22 04:16 U Epithel Cells (Auto) 10-20 /lpf (0-5) H 12/10/22 04:16 Urine Bacteria (Auto) Negative (Negative) 12/10/22 04:16 12/10/22 04:25 POC Glucose (other) 177 H
[2022-12-10] MEDS ORDERED: ROCURONIUM BROMIDE 10 MG/ML 5 ML VIAL IV ONE (14:24)
[2022-12-10] MEDS ORDERED: BUPIVACAINE/EPINEPHRINE 0.5% MPF 1:200,000 30 ML VIAL ONE (14:24)
[2022-12-10] MEDS ORDERED: PROPOFOL IV EMULSION 10 MG/ML 20 ML VIAL IV ONE (14:24)
--- NOTE | 2022-12-10 14:29 | Electrocardiogram Report ---
Test Reason : Blood Pressure : / mmHG Vent. Rate : 079 BPM Atrial Rate : 079 BPM P-R Int : 166 ms QRS Dur : 082 ms QT Int : 360 ms P-R-T Axes : 034 041 015 degrees QTc Int : 412 ms Poor data quality, interpretation may be adversely affected Normal sinus rhythm Poor R wave progression, consider anterior SD vs. lead placement vs. LVH Abnormal ECG When compared with ECG of 04-JAN-2021 02:15, PRWP now present Confirmed by Ric Blanc ([id number]) on 12/10/2022 2:29:05 PM Referred By: REFERRED SELF Confirmed By:Ric Blanc
[2022-12-10] MEDS ORDERED: LIDOCAINE 2% 2 ML VIAL/AMP(20MG/ML) INFIL ONE (14:44)
[2022-12-10] MEDS ORDERED: SUGAMMADEX SODIUM 200 MG/2 ML VIAL IV ONE (14:45)
[2022-12-10] MEDS ORDERED: ONDANSETRON INJ 2 MG/ML 2 ML VIAL ONE (14:45)
[2022-12-10] MEDS ORDERED: DEXAMETHASONE SOD INJ 4 MG/ML VIAL ONE (14:45)
[2022-12-10] MEDS ORDERED: KETOROLAC 30 MG/ML VIAL ONE (14:59)
--- NOTE | 2022-12-10 15:26 | Post Operative Brief Note ---
Immediate Post Op Note v1 Date of Surgery December 10, 2022 Pre & Post Diagnosis Operation Date: 12/10/22 12:35 Pre-Op Diagnosis: Acute appendicitis Post-Op Diagnosis: Acute appendicitis I identified the patient and participated in the time-out.: Yes Procedure Operation Date: 12/10/22 12:35 Actual Procedures p Laparoscopic Appendectomy(Not Applicable) - Brayan Guerra MD Surgeon Brayan Guerra MD Emergency Department Clinician JERRICA Dias assisted with tissue retraction, camera op, closure Estimated Blood Loss 5 Findings Consistent with Post-Op Diagnosis Drains Hendricks Catheter (inserted after induction of anesthesia by Negar Willett RN without difficulty, removed at end of case)
--- NOTE | 2022-12-10 15:26 | Operative Report ---
Post Operative Report Pre & Post Diagnosis Operation Date: 12/10/22 12:35 Pre-Op Diagnosis: Acute appendicitis Post-Op Diagnosis: Acute appendicitis I identified the patient and participated in the time-out.: Yes Procedure Operation Date: 12/10/22 12:35 Actual Procedures p Laparoscopic Appendectomy(Not Applicable) - Brayan Guerra MD Surgeon Brayan Guerra MD Textile Stylist JERRICA Dias assisted with tissue retraction, camera op, closure Estimated Blood Loss 5 Findings Consistent with Post-Op Diagnosis Specimens Appendix Drains None Anesthesia Type General Complications No immediate complications Description of Procedure The patient was taken to the operating room, and placed supine on the operating table. A timeout was performed, perioperative antibiotics were administered, SCD boots were placed. After adequate anesthesia and analgesia was obtained, the abdomen was prepped and draped in the normal sterile fashion. A 1 cm incision was made in the supraumbilical region and carried down to the level of the fascia. A trach hook was used to grasp the fascia and elevated and a varies needle was used to enter the abdominal cavity. The abdomen was insufflated to a pressure of 15 mmHg, and a 5 mm trocar was placed in this location. A 5 mm 30 degree laparoscope was placed into the abdominal cavity, and the abdomen was surveyed. The patient was placed in Trendelenburg and slightly to the left. One 5 mm trocar was placed in the right upper quadrant, and one 12 mm trocar was placed in the left lower quadrant under direct visualization. The right colon was identified and traced down to the cecum. The appendix was identified and elevated anteriorly and medially. A window was created at the base of the appendix with a [place] dissector. The Endo ESA stapler was used to transect the appendix at its base through noninflamed tissue, and subsequently the mesoappendix. The appendix was placed in an Endo Catch bag, and removed via the left lower quadrant port site. Attention was turned to hemostasis, which was excellent. The abdomen was copiously irrigated and suctioned free, and again hemostasis was found to be excellent. All trochars removed under direct visualization. The abdomen was desufflated. The fascia in the 12 mm port site was closed with a 0 Vicryl suture. The skin was closed with a running 4-0 Monocryl subcuticular stitch. Dermabond was applied. The patient tolerated the procedure without complication, and was transferred in stable condition to the PACU. All instrument, needle, and sponge counts were correct at the end of the case. My supply assistant was necessary throughout the procedure for tissue retraction, possible camera operation, and closure of the wounds. I understand that section 1842(b)(7)(D) of the Social Security act generally prohibits Medicare physician fee schedule payment for the services of assistants at surgery in teaching hospitals when qualified residents are available to furnish such services. I certify that the services for which payment is claimed were medically necessary and that no qualified resident was available to perform the services. I further understand that these services are subject to postpayment review by the Medicare carrier. I attest to the content of the Intraoperative Record and any orders documented therein. Any exceptions are noted below.
--- NOTE | 2022-12-10 16:13 | Anesthesiology Progress Note ---
Date of Service December 10, 2022 Anesthesia Post Procedure Vital Signs Vital Signs: Temp Pulse Pulse Pulse Resp BP BP 12/10/22 16:10 97.9 F 78 16 116/80 12/10/22 16:00 76 16 115/77 12/10/22 15:50 78 16 106/69 12/10/22 15:40 97.3 F L 69 12 103/67 12/10/22 13:07 98.6 F 71 18 103/69 12/10/22 12:30 66 11 L 12/10/22 12:30 100/65 12/10/22 12:00 64 17 12/10/22 12:00 95/74 L 12/10/22 11:30 66 15 12/10/22 11:30 96/64 L 12/10/22 12:54 89 18 12/10/22 11:00 62 18 12/10/22 11:00 99/68 L 12/10/22 10:30 60 17 12/10/22 10:30 99/64 L 12/10/22 10:00 62 16 12/10/22 10:00 92/66 L 12/10/22 09:30 64 15 12/10/22 09:30 97/68 L 12/10/22 09:01 70 20 12/10/22 09:01 102/67 12/10/22 09:00 64 27 H 12/10/22 08:30 68 16 12/10/22 08:30 110/71 12/10/22 08:00 75 23 12/10/22 08:00 129/96 12/10/22 07:30 70 21 12/10/22 07:30 124/80 12/10/22 07:00 72 21 12/10/22 07:00 140/93 12/10/22 11:30 12/10/22 08:47 70 12/10/22 06:30 78 15 115/71 12/10/22 06:00 122/70 12/10/22 04:16 67 12/10/22 05:56 70 16 114/71 12/10/22 06:01 66 16 122/70 12/10/22 03:44 97.5 F L 80 20 109/75 Pulse Ox O2 Del Method O2 Flow Rate 12/10/22 16:10 98 Room Air 12/10/22 16:00 99 Room Air 12/10/22 15:50 100 Oxymask 5 12/10/22 15:40 98 Oxymask 10 12/10/22 13:07 95 Room Air 12/10/22 12:30 96 12/10/22 12:30 12/10/22 12:00 97 12/10/22 12:00 12/10/22 11:30 96 12/10/22 11:30 12/10/22 12:54 96 Room Air 12/10/22 11:00 95 12/10/22 11:00 12/10/22 10:30 95 12/10/22 10:30 12/10/22 10:00 94 12/10/22 10:00 12/10/22 09:30 93 12/10/22 09:30 12/10/22 09:01 97 12/10/22 09:01 12/10/22 09:00 97 12/10/22 08:30 98 12/10/22 08:30 12/10/22 08:00 97 12/10/22 08:00 12/10/22 07:30 95 12/10/22 07:30 12/10/22 07:00 96 12/10/22 07:00 12/10/22 11:30 96 Room Air 12/10/22 08:47 12/10/22 06:30 97 12/10/22 06:00 12/10/22 04:16 12/10/22 05:56 94 12/10/22 06:01 95 Room Air 12/10/22 03:44 99 Room Air Transfer of Care Handoff Completed per policy Notes Mental Status: alert / awake / arousable and participated in evaluation Patient Amnestic to Procedure: Yes Nausea / Vomiting: adequately controlled Pain: adequately controlled Airway Patency, RR, SpO2: stable & adequate BP & HR: stable & adequate Hydration State: stable & adequate Anesthetic Complications: no major complications apparent and Pt Satisfied with anesthetic care
[2022-12-10] MEDS ORDERED: oxyCODONE/ACETAMINOPHEN 5mg/325mg TAB PO PRN (17:11)
[2022-12-10] MEDS ORDERED: INFLUENZA VIRUS QUADRIVALENT VACCINE (IIV4) 0.5 ML SYR IM ONE (17:28)
[2022-12-10] MEDS ORDERED: ACETAMINOPHEN 325 MG TAB PO PRN (18:19)
[2022-12-10] MEDS ORDERED: PHARMACY GLYCEMIC MGMT CONSULT PRN (20:16)
[2022-12-10] MEDS: INSULIN ASPART PER UNIT CHARGE SC SCH (20:34)
[2022-12-10] MEDS ORDERED: LANTUS PER UNIT CHARGE SC SCH (21:00)
[2022-12-11] MEDS ORDERED: INSULIN ASPART PER UNIT CHARGE SC SCH
[2022-12-11] MEDS: INSULIN ASPART PER UNIT CHARGE SC SCH (08:03)
--- NOTE | 2022-12-11 08:31 | Surgery Progress Note ---
Date of Service December 11, 2022 Assessment & Plan (1) Acute appendicitis: Plan: POD #1 s/p lap appendectomy Doing well Advance diet as tolerated Out of bed ambulate Discharge to home later today Return to clinic in 2 weeks for follow-up Admission and Anticipated Discharge Date Admission Date: December 10, 2022 Subjective Doing well. Minimal pain. No nausea or vomiting. Tolerating diet. Physical Exam Physical Exam: AFVSS NAD, A&O x3 Abdomen: Soft, nontender Incisions: C/D/I Dermabond in place Results & Data Vital Signs (Past 12 Hours) Vital Signs Temp Pulse Pulse Resp BP Pulse Ox O2 Del Method 12/11/22 07:49 Room Air 12/11/22 07:46 36.6 C 62 16 124/56 L 99 Room Air 12/11/22 03:14 36.4 C L 61 18 102/67 96 Room Air 12/10/22 23:33 36.3 C L 66 18 110/72 94 Room Air
--- NOTE | 2022-12-11 08:33 | Discharge Summary ---
Date of Service December 11, 2022 Admission HPI Per Admitting Provider Dasia is a 57 year-old female with history of diabetes, hypertension, GERD with history of laparoscopic gastric bypass and laparoscopic cholecystectomy who presented to emergency room with complaint of mid lower abdominal pain that started last evening around 8 pm with chills, nausea, and vomiting, and low appetite. No changes in bowel habits. No difficulty urinating. Pain was burning at first but then became more sharp. Antacid did not improve pain. No history of blood clots or bleeding disorders. ER work-up included labs which showed no leukocytosis. CT scan of abdomen and pelvis with dilated appendix measuring 1.1 cm with no evidence of abscess/perforation. Pain was rating at 7/10 upon ER presentation and now 4/10 after pain medication. Principal Diagnosis Acute appendicitis Discharge Data Allergies Allergy/AdvReac Type Severity Reaction Status Date / Time codeine AdvReac Mild makes her Verified 12/10/22 13:14 sick to stomach Consultations 12/10/22 06:18 ED Decision to Admit Stat 12/10/22 06:20 ED Decision to Admit Stat Procedures Performed Operation Date: 12/10/22 12:35 Actual Procedures p Laparoscopic Appendectomy(Not Applicable) - Brayan Guerra MD Ordered Studies 12/10/22 04:00 CT abd pelvis IV con only Stat Hospital Course (1) Acute appendicitis: Plan Patient was seen in the emergency department and noted to have acute lan endicitis. She was taken to the operating room for laparoscopic appendectomy, the details of which are dictated in a separate operative note. Postoperatively she did well and was transferred in stable condition to the PACU and subsequently to the floor. She is maintained with DVT prophylaxis with SCD boots and Lovenox. Aggressive pulmonary toilet with incentive spirometry and early ambulation. Her diet was advanced as tolerated throughout her hospital stay. Pain was controlled with IV and subsequently p.o. pain medications. By the date of discharge, she is tolerating a regular diet, not requiring any IV pain medications, was discharged home in stable condition. She will follow-up in 2 weeks in the surgery office. Total Time Total Time Spent Total Time Spent (In Minutes): 30 minutes Discharge Plan Discharge Items Patient Disposition: Home - Self-Care Reason For Visit: ACUTE APPENDICITIS Discharge Diagnosis: Acute appendicitis Condition on Discharge: Good Activity: Per Instructions section Lifting: No more than 25 pounds Sexual Activity: Wait until after follow-up appointment Exercise/Sports: Wait until after follow-up appointment Non-emergency contact: Surgeon Call non-emergency contact if: you have any medication questions, your symptoms worsen, your pain is not controlled, your pain is worsening, your pain is unusual for you, your temperature is above 101.5, your wound has increased redness, your wound has increased drainage and your wound pain has increased Follow-up/Referrals: Jeet Stevenson, [Primary Care Provider] - Diet: Carb Consistent or DM2 Addtl Attending Provider Instructions: Post-Surgical ~Discharge Instructions Activity Recommendations: - lifting limitation: (20 pounds for 2 weeks), - exercise/sex/sports limit: (nonstrenuous for 2 weeks), - driving or machine use limit: (none for 1 week), - Shower/bathe limit: (may shower beginning tomorrow) Diet: - Resume previous diet SPECIAL CARE INSTRUCTIONS: - May shower in 24 hours. Let water run over area and pat dry. - Leave Dermabond in place. - Call the surgeon's office with any questions or concerns - - (ex. temperature higher than 101 degrees F, excessive bleeding or pain). MEDICATIONS: - Resume previous medications unless instructed otherwise by your surgeon. - Ibuprofen 600 mg every 6 hours with food - Percocet 1 every 4 hours, as needed for pain FOLLOW UP VISIT: - If not already scheduled, please call the office to schedule a two week follow-up appointment. Office number Addtl Director Of Operations Provider Instructions: Pending Studies at Discharge: No Stand-Alone Forms: Work/School Release (ED), [facility], Smoking Cessation, Virtual Emergency Department, Important Visit Information Medications and DC Order Prescriptions: New oxycodone-acetaminophen [Percocet] 5-325 mg tablet 1 tab PO Q6H PRN (Reason: pain) Qty: 10 0RF Continued multivitamin Tablet 1 tab PO DAILY famotidine 20 mg tablet 20 mg PO DAILY metformin 1,000 mg tablet 1,000 mg PO BID lisinopril 2.5 mg tablet 2.5 mg PO DAILY escitalopram oxalate 20 mg tablet 10 mg PO DAILY calcium carbonate-vitamin D3 [Calcium 600 + D(3)] 600 mg(1,500mg) -400 unit Tablet 1 tab PO DAILY atorvastatin 10 mg tablet 10 mg PO DAILY pantoprazole 40 mg tablet,delayed release (DR/EC) 40 mg PO DAILY Ozempic 1 mg/dose (4 mg/3 mL) pen injector 1 mg SUBCUT WK Rx Instructions: Friday morning Discharge Orders: Discharge Order (Routine); Ordered 12/11/22 Ordered By: Brayan Guerra Admission Data Admit Date/Time: 12/10/22 13:09 Attending Provider: Brayan Guerra Admit Provider: rBayan Guerra Primary Care Provider: Jeet Stevenson Other Providers: Kiara Meyer ; Brayan Guerra
[2022-12-11] MEDS ORDERED: lisinopril 2.5 MG TAB PO SCH (09:00)
[2022-12-11 13:14] LABS: Estimated Average Glucose 140 mg/dl; Hemoglobin A1C 6.5 % (4.5-5.6)
== END 2022-12-11 10:27 | disposition home or self-care (01) ==
LOC: ED 03:40 → 3N 13:08 → OR 13:08